=== PATIENT | female | born 1995 | race Hispanic/Latino ===

== ENCOUNTER → 2022-09-14 | Outpatient (CLI) | payer MEDICAID ==
[2022-09-14 16:41] LABS: T4 (THYROXINE) 8.2 ug/dL (4.7-13.3); THYROID STIMULATING HORMONE 1.06 uIU/mL (0.36-3.74)
== END | disposition home or self-care (01) ==
LOC: LAB 12:01
PROVIDERS: ATTEND Student in an Organized Health Care Education/Training Program
DX: R00.2 Palpitations (principal)
CPT/HCPCS: 36415; 84436; 84443; 84479